=== PATIENT | male | born 2000 | race Two or more races ===

== ENCOUNTER 2023-04-25 23:07 | Inpatient (IN) | payer MEDICAID ==
[~2023-04-25] VITALS: Ht 182.9 cm; Wt 66.3 kg
[2023-04-25 23:42] LABS: Basophils # (auto) 0.1 10 ^3/uL (0-0.2); Basophils % (auto) 0.5 % (0.0-2.0); Eosinophils # (auto) 0 10 ^3/uL (0-0.8); Hematocrit 45.2 % (41.0-53.0); Hemoglobin 15.3 g/dL (13.5-17.5); Lymphocytes # (auto) 1.9 10 ^3/uL (0.4-5.4); Mean Corpuscular Hemoglobin 29.6 pg (28.0-32.0); Mean Corpuscular Hgb Conc. 33.9 g/dL (32.0-36.0); Mean Corpuscular Volume 87.3 fL (80.0-100.0); Monocytes # (auto) 1.7 10 ^3/uL (0-1.3); Monocytes % (auto) 8.1 % (0.0-12.0); Neutrophils % (auto) 82.4 % (37.0-80.0); Red Blood Cells 5.17 10^6/uL (4.5-5.90); Red Cell Distribution Width 13.1 % (11.8-14.3); White Blood Cell 20.7 10^3/uL (4.4-10.8)
[2023-04-26] VITALS (7 sets, daily range): BP systolic 117–132; BP diastolic 62–80; PULSE 102–121; RESP 19–21; TEMP 97.8–99.2; O2SAT 95–98
[2023-04-26 00:18] LABS: Alanine Aminotransferase 16 U/L (7-40); Albumin 4.8 g/dL (3.2-4.8); Alkaline Phosphatase 75 U/L (46-116); Anion Gap 9 (5-15); Aspartate Aminotransferase 11 U/L (13-40); BUN/Creatinine Ratio 9.2 (10.0-20.0); Bilirubin, Total 1.4 mg/dL (0.2-1.0); Blood Urea Nitrogen 8 mg/dL (9-23); Calcium 9.4 mg/dL (8.7-10.4); Carbon Dioxide 24 mmol/L (20-30); Chloride 103 mmol/L (98-107); Glucose 112 mg/dL (74-106); Potassium 3.8 mmol/L (3.5-5.1); Sodium 136 mmol/L (136-145); Total Protein 8.4 g/dL (5.7-8.2)
[2023-04-26] MEDS: SODIUM CHLORIDE 0.9% 2,050 ML IV ONE (00:30)
[2023-04-26] MEDS: cefTRIAXone 1GM/50ML D5W 50 ML IV SCH (01:10)
[2023-04-26] MEDS: VANCOMYCIN 1GM/200ML 200 ML IV ONE (01:31)
[2023-04-26] MEDS: KETOROLAC TROMETH 30 MG/ML 1ML VIAL IV ONE (01:55)
[2023-04-26] MEDS: PROMETHAZINE HCL 25 MG/ML 1ML IV ONE (01:55)
[2023-04-26 02:54] LABS: COVID19 ANTIGEN SOFIA FIA POSITIVE (NEGATIVE)
[2023-04-26] MEDS ORDERED: ONDANSETRON HCL 4 MG/2 ML VIAL IV PRN ×3 (06:00→17:00)
[2023-04-26] MEDS ORDERED: NITROGLYCERIN 0.4 MG SL TAB SL PRN ×2 (06:00→06:15)
[2023-04-26] MEDS ORDERED: ALBUTEROL SULF HFA 90MCG INH 200DOSE IN PRN ×2 (06:00→06:15)
[2023-04-26] MEDS ORDERED: MORPHINE SULFATE INJ 2 MG/ml SYRG IV PRN ×2 (06:00→06:15)
[2023-04-26] MEDS ORDERED: ACETAMINOPHEN 500 MG TAB PO PRN (06:00)
[2023-04-26] MEDS ORDERED: REMDESIVIR PER PHARMACY 0 ML IV SCH ×2 (06:00→06:15)
[2023-04-26 06:28] LABS: CRP High Sensitivity 12.5 mg/dL (<1.0)
[2023-04-26 06:30] LABS: Thyroid Stimulating Hormone 1.77 uIU/mL (0.55-4.78)
[2023-04-26 07:23] LABS: Magnesium 1.8 mg/dL (1.6-2.6)
[2023-04-26] MEDS: ACETAMINOPHEN 500 MG TAB PO PRN ×2 (08:20→18:30)
[2023-04-26] MEDS ORDERED: VANCOMYCIN PER PHARMACY 0 MG IV SCH ×2 (08:45→23:15)
[2023-04-26] MEDS: VANCOMYCIN 1GM/200ML 200 ML IV SCH (09:11)
[2023-04-26 09:22] LABS: Urine Bacteria NONE SEEN /hpf (None Seen); Urine Blood Negative /uL (Negative); Urine Clarity Clear (Clear); Urine Color Yellow (Yellow); Urine Hyaline Cast FEW /lpf (0 - 2); Urine Mucus FEW (None Seen); Urine Protein, UAD 1+ (Negative); Urine Specific Gravity 1.043 (1.001-1.035); Urine Urobilinogen Normal (Negative); Urine WBC 3 /hpf (0 - 3)
[2023-04-26] MEDS ORDERED: AZITHROMYCIN 500MG/ 250ML 250 ML IV SCH (10:00)
[2023-04-26] MEDS ORDERED: ENOXAPARIN SOD 40 MG/0.4 ML SYRINGE SC SCH (10:00)
[2023-04-26] MEDS ORDERED: VANCOMYCIN 1GM/200ML 200 ML IV SCH ×2 (10:00)
[2023-04-26] MEDS ORDERED: DexAMETHasone SOD PHOS 10MG/1ML VIAL INJ IV SCH (10:00)
[2023-04-26] MEDS ORDERED: ASCORBIC ACID 1,000 MG TAB PO SCH (10:00)
[2023-04-26] MEDS ORDERED: ZINC SULFATE 220mg CAP or TAB PO SCH (10:00)
[2023-04-26] MEDS ORDERED: CHOLECALCIFEROL (VITD3) 2,000 UNIT CAP/TAB PO SCH (10:00)
[2023-04-26] MEDS: ZINC SULFATE 220mg CAP or TAB PO SCH (10:13)
[2023-04-26] MEDS: AZITHROMYCIN 500MG/ 250ML 250 ML IV SCH (10:13)
[2023-04-26] MEDS: ASCORBIC ACID 1,000 MG TAB PO SCH (10:14)
[2023-04-26] MEDS: CHOLECALCIFEROL (VITD3) 2,000 UNIT CAP/TAB PO SCH (10:14)
[2023-04-26] MEDS: DexAMETHasone SOD PHOS 10MG/1ML VIAL INJ IV SCH (10:15)
[2023-04-26] MEDS: ENOXAPARIN SOD 40 MG/0.4 ML SYRINGE SC SCH (10:15)
[2023-04-26 13:00] LABS: Amphetamine Screen, Urine Neg (NEGATIVE); Barbiturate Scree,Urine Neg (NEGATIVE); Benzodiazephine Screen, Urine Neg (NEGATIVE); Cocaine Screen, Urine Neg (NEGATIVE)
[2023-04-26 13:01] LABS: Cannabinoid Screen, Urine Pos (NEGATIVE); Opiate Scree,Urine Neg (NEGATIVE); Phencyclidine Screen, Urine Neg (NEGATIVE)
[2023-04-26] MEDS: HYDROcodone-ACET 5/325MG TAB PO PRN (18:40)
[2023-04-26 20:18] LABS: Rapid Influenza A Negative (Negative); Rapid Influenza B Negative (Negative)
[2023-04-26] MEDS ORDERED: VANCOMYCIN 1GM/200ML 200 ML IV NR (23:45)
[2023-04-27] VITALS (9 sets, daily range): BP systolic 104–126; BP diastolic 57–85; PULSE 79–115; RESP 16–20; TEMP 97.9–98.3; O2SAT 96–98
[2023-04-27 07:16] LABS: Basophils # (auto) 0 10 ^3/uL (0-0.2); Basophils % (auto) 0.1 % (0.0-2.0); Eosinophils # (auto) 0 10 ^3/uL (0-0.8); Eosinophils % (auto) 0.1 % (0.0-7.0); Hematocrit 40.1 % (41.0-53.0); Hemoglobin 13.5 g/dL (13.5-17.5); Lymphocytes # (auto) 0.9 10 ^3/uL (0.4-5.4); Lymphocytes % (auto) 8.3 % (10.0-50.0); Mean Corpuscular Hemoglobin 29.5 pg (28.0-32.0); Mean Corpuscular Hgb Conc. 33.6 g/dL (32.0-36.0); Mean Corpuscular Volume 87.9 fL (80.0-100.0); Monocytes # (auto) 0.9 10 ^3/uL (0-1.3); Monocytes % (auto) 7.7 % (0.0-12.0); Neutrophils # (auto) 9.5 10 ^3/uL (1.6-8.6); Neutrophils % (auto) 83.8 % (37.0-80.0); Red Blood Cells 4.56 10^6/uL (4.5-5.90); White Blood Cell 11.4 10^3/uL (4.4-10.8)
[2023-04-27 07:24] LABS: Alanine Aminotransferase 15 U/L (7-40); Albumin 4.1 g/dL (3.2-4.8); Alkaline Phosphatase 69 U/L (46-116); Anion Gap 7 (5-15); Aspartate Aminotransferase 17 U/L (13-40); Blood Urea Nitrogen 9 mg/dL (9-23); Calcium 9.4 mg/dL (8.5-10.1); Carbon Dioxide 26 mmol/L (20-30); Chloride 108 mmol/L (98-107); Glucose 102 mg/dL (74-106); Potassium 3.9 mmol/L (3.5-5.1); Sodium 141 mmol/L (136-145)
[2023-04-27 07:25] LABS: Bilirubin, Total 0.7 mg/dL (0.2-1.0); Total Protein 7.2 g/dL (5.7-8.2)
[2023-04-27] MEDS: VANCOMYCIN 1GM/200ML 200 ML IV SCH (10:17)
[2023-04-27] MEDS: CHOLECALCIFEROL (VITD3) 2,000 UNIT CAP/TAB PO SCH (10:22)
[2023-04-28] VITALS (8 sets, daily range): BP systolic 108–149; BP diastolic 60–77; PULSE 68–94; RESP 18–20; TEMP 97.8–98.6; O2SAT 95–99
[2023-04-28 02:59] LABS: Basophils # (auto) 0 10 ^3/uL (0-0.2); Basophils % (auto) 0.2 % (0.0-2.0); Eosinophils # (auto) 0 10 ^3/uL (0-0.8); Hematocrit 43.3 % (41.0-53.0); Hemoglobin 14.4 g/dL (13.5-17.5); Lymphocytes # (auto) 1.2 10 ^3/uL (0.4-5.4); Lymphocytes % (auto) 10.5 % (10.0-50.0); Mean Corpuscular Hemoglobin 29.4 pg (28.0-32.0); Mean Corpuscular Hgb Conc. 33.2 g/dL (32.0-36.0); Mean Corpuscular Volume 88.6 fL (80.0-100.0); Monocytes # (auto) 0.9 10 ^3/uL (0-1.3); Monocytes % (auto) 7.8 % (0.0-12.0); Neutrophils # (auto) 8.9 10 ^3/uL (1.6-8.6); Neutrophils % (auto) 81.5 % (37.0-80.0); Nucleated Red Blood Cells % 0.1 %; Red Blood Cells 4.89 10^6/uL (4.5-5.90); Red Cell Distribution Width 13.1 % (11.8-14.3); White Blood Cell 10.9 10^3/uL (4.4-10.8)
[2023-04-28] MEDS ORDERED: AUG875T PO (15:11)
== END 2023-04-28 16:45 | disposition home or self-care (01) | DRG 137 ==
LOC: ER 23:07 → TELE 04-26 05:47 → ER 04-26 05:51 → TELE-EAST 04-26 23:11
PROVIDERS: ADMIT Nurse Practitioner; ATTEND Internal Medicine Pulmonary Disease
DX: U07.1 COVID-19 (principal); J12.82 Pneumonia due to coronavirus disease 2019; D89.839 Cytokine release syndrome, grade unspecified; R06.03 Acute respiratory distress
CPT/HCPCS: 36415; 71045; 80053; 80202; 80307; 81001; 82306; 82565; 82728; 83036; 83605; 83615; 83735; 84443; 84484; 85025; 85379; 86141; 87040; 87077; 87186; 87426; 87804; 93005; G0378; J1100; J1885

== ENCOUNTER 2023-12-23 09:59 | Emergency (ER) | payer MEDICAID ==
[~2023-12-23] VITALS: Ht 182.9 cm; Wt 65.9 kg
[~2023-12-23 09:59] MED LIST: AUG875T PO
[2023-12-23 10:33] LABS: Basophils # (auto) 0 10 ^3/uL (0-0.2); Basophils % (auto) 0.4 % (0.0-2.0); Eosinophils # (auto) 0.1 10 ^3/uL (0-0.8); Eosinophils % (auto) 1.5 % (0.0-7.0); Hematocrit 44.8 % (41.0-53.0); Lymphocytes # (auto) 2.3 10 ^3/uL (0.4-5.4); Lymphocytes % (auto) 37.7 % (10.0-50.0); Mean Corpuscular Hemoglobin 31.5 pg (28.0-32.0); Mean Corpuscular Hgb Conc. 35.7 g/dL (32.0-36.0); Mean Corpuscular Volume 88.2 fL (80.0-100.0); Monocytes # (auto) 0.5 10 ^3/uL (0-1.3); Monocytes % (auto) 7.8 % (0.0-12.0); Neutrophils # (auto) 3.2 10 ^3/uL (1.6-8.6); Neutrophils % (auto) 52.6 % (37.0-80.0); Nucleated Red Blood Cells % 0.1 %; Platelet Count (auto) 294 10^3/uL (140-450); Red Blood Cells 5.08 10^6/uL (4.5-5.90); Red Cell Distribution Width 12.5 % (11.8-14.3); White Blood Cell 6.1 10^3/uL (4.4-10.8)
[2023-12-23 10:40] LABS: Chloride 107 mmol/L (98-107); Potassium 3.6 mmol/L (3.5-5.1); Sodium 141 mmol/L (136-145)
[2023-12-23 10:41] LABS: Anion Gap 10 (5-15); Calcium 9.9 mg/dL (8.7-10.4); Carbon Dioxide 24 mmol/L (20-31)
[2023-12-23 10:46] LABS: BUN/Creatinine Ratio 11.6 (10.0-20.0); Blood Urea Nitrogen 11 mg/dL (9-23); Glucose 146 mg/dL (74-106)
[2023-12-23 12:00] VITALS: BP 119/80; PULSE 78; RESP 18; TEMP 98; O2SAT 99
== END 2023-12-23 13:02 | disposition left against medical advice (07) ==
LOC: ER 09:59
DX: R51.9 Headache, unspecified (principal); H54.62 Unqualified visual loss, left eye, normal vision right eye; Z90.49 Acquired absence of other specified parts of digestive tract
CPT/HCPCS: 36415; 70450; 80048; 85025

== ENCOUNTER 2023-12-25 05:55 | Emergency (ER) | payer MEDICAID ==
[~2023-12-25] VITALS: Ht 182.9 cm; Wt 70.6 kg
[2023-12-25 06:56] VITALS: BP 115/72; PULSE 89; RESP 18; TEMP 98; O2SAT 99
[2023-12-25] MEDS ORDERED: ERY05OO OP (07:23)
[2023-12-25] MEDS ORDERED: CEPH500C PO (07:23)
[2023-12-25] MEDS ORDERED: IBUP1TAB5 PO (07:23)
== END 2023-12-25 07:23 | disposition home or self-care (01) ==
LOC: ER 05:55
DX: H00.015 Hordeolum externum left lower eyelid (principal); Z79.899 Other long term (current) drug therapy; Z90.49 Acquired absence of other specified parts of digestive tract

== ENCOUNTER 2024-01-22 10:21 | Emergency (ER) | payer MEDICAID ==
[~2024-01-22] VITALS: Ht 182.9 cm; Wt 72.9 kg
[~2024-01-22 10:21] MED LIST changes: +CEPH500C PO; +ERY05OO OP; +IBUP1TAB5 PO
[2024-01-22 11:42] VITALS: BP 155/95; PULSE 106; RESP 17; TEMP 98.3; O2SAT 98
--- NOTE | 2024-01-22 11:42 | ED.PDOC ---
Eye-HPI HPI Comments 23 year old male presents for stye to the right lower eyelid Recently had one on the left. No other complaint Chief Complaint: Eye Problem Time Seen by MD: 11:26 Primary Care Provider: NONE Reviewed Notes: Nurses Notes, Medications, Allergies Allergies: Coded Allergies: NO KNOWN ALLERGIES (Unverified , 04/25/23) Home Meds Active Scripts Ibuprofen Micronized (Ibuprofen) 600 Mg Tab, 600 MG PO TID for 10 Days, #30 TAB 0 Refills Prov:WES ELLISON COMMUNITY LIFE DIRECTOR 01/22/24 Cephalexin Monohydrate (Cephalexin) 500 Mg Cap, 1 CAP PO QID for 5 Days, #20 CAP 0 Refills Prov:WES ELLISON COMMUNITY LIFE DIRECTOR 01/22/24 Erythromycin (Erythromycin) 5 Mg/Gm Oin, 1 APPLIC OP TID for 7 Days, #5 GRAMS 0 Refills Prov:WES ELLISON COMMUNITY LIFE DIRECTOR 12/25/23 Amoxicillin & Pot Clavulanate (AUGMENTIN TABLET) 875 Mg Tb, 875 MG PO BID for 7 Days, #14 TAB Prov:RAAD PORTER RESIDENT 04/28/23 Information Source: Patient Mode of Arrival: Ambulatory Past Medical History PAST MEDICAL HISTORY: Denies Surgical History: Appendectomy Family History Family History: Reviewed,noncontributory to illness Social History Smoker: Non-Smoker Alcohol: Denies ETOH Use Drugs: Denies Drug Use Lives In: Home All Other Systems: Reviewed and Negative (Per HPI) Physical Exam General Appearance: No Apparent Distress, Normal HEENT: Normal ENT Inspection, Pharynx Normal, TMs Normal Neck: Full Range of Motion, Non-Tender, Normal, Normal Inspection Respiratory: Chest Non-Tender, Lungs Clear, No Accessory Muscle Use, No Respiratory Distress, Normal Breath Sounds Cardiovascular: No Edema, No JVD, No Murmur, No Gallop, Normal Peripheral Pulses, Regular Rate/Rhythm Breast Exam: Deferred Gastrointestinal: No Organomegaly, Non Tender, No Pulsatile Mass, Normal Bowel Sounds, Soft Genitalia: Deferred Pelvic: Deferred Rectal: Deferred Extremities: No calf tenderness, Normal capillary refill, Normal inspection, Normal range of motion, Non-tender, No pedal edema Musculoskeletal : Apperance: Normal Neurologic: Alert, linux systems analyst II-XII nml as Tested, No Motor Deficits, Normal Affect, Normal Mood, No Sensory Deficits Cerebellar Function: Normal Reflexes: Normal Skin: Dry, Normal Color, Warm Lymphatic: No Adenopathy Was a procedure done? Was a procedure done?: No EENT DIFF Eye: Allergic, Hordeolum (stye) X-Ray, Labs, Meds, VS Vital Signs Date Time Temp Pulse Resp B/P (MAP) Pulse Ox O2 Delivery O2 Flow Rate FiO2 01/22/24 11:42 98.3 106 17 155/95 (115) 98 98.3 01/22/24 11:42 106 17 98 Room Air 01/22/24 10:32 98.3 106 17 155/95 (115) 98 X-Ray, Labs, Meds, VS Comment On reevaluation, patient had symptomatic improvement. Patient is stable for discharge at this time. External notes reviewed. Test results and diagnostic imaging interpreted. All diagnostic findings, discharge care, education and instructions provided Follow-up with PCP in 2 to 3 days Patient verbalized understanding and agreed to treatment plan Vital signs stable, afebrile, no acute distress noted Patient ambulatory with strong steady gait Advised to return precautions for any new or worsening symptoms, return to ER immediately for re-evaluation Patient is aware that the purpose of this visit was for an acute medical emergency requiring emergent stabilization. Chronic conditions, including malignancies have not been ruled out. Patient is instructed to follow up with PCP as directed and discharge instructions for continued care and workup. If unable to arrange follow-up, patient is to return to the emergency department for reassessment. Patient (parent or legal guardian if applicable) was given verbal and written discharge instructions and acknowledges understanding. Time of 1ST Reevaluation: 11:41 Reevaluation 1ST: Improved Patient Education/Counseling: Diagnosis, Treatment Family Education/Counseling: Diagnosis, Treatment Departure 1 Departure Time of Disposition: 11:41 Impression: Primary Impression: Stye Qualified Codes: H00.012 - Hordeolum externum right lower eyelid Disposition: HOME / SELF CARE / HOMELESS Condition: Stable e-Prescriptions Ibuprofen Micronized (Ibuprofen) 600 Mg Tab 600 MG PO TID for 10 Days, #30 TAB 0 Refills Prov: WES ELLISON COMMUNITY LIFE DIRECTOR 01/22/24 Cephalexin Monohydrate (Cephalexin) 500 Mg Cap 1 CAP PO QID for 5 Days, #20 CAP 0 Refills Prov: WES ELLISON COMMUNITY LIFE DIRECTOR 01/22/24 Discharged With: Self Critical Care Note Critical Care Time?: No Stability Stability form required: No Heart Score Heart Score: Heart Score Response (Comments) Value History N/A 0 EKG N/A 0 Age N/A 0 Risk Factors N/A 0 Troponin N/A 0 Total 0 WES ELLISON NP Jan 22, 2024 11:42
== END 2024-01-22 11:44 | disposition home or self-care (01) ==
LOC: ER 10:21
DX: H00.012 Hordeolum externum right lower eyelid (principal); Z90.49 Acquired absence of other specified parts of digestive tract; Z79.1 Long term (current) use of non-steroidal anti-inflammatories (NSAID); Z79.899 Other long term (current) drug therapy

== ENCOUNTER 2024-06-12 18:29 | Emergency (ER) | payer MEDICAID ==
[~2024-06-12] VITALS: Ht 182.9 cm; Wt 71.7 kg
[2024-06-12 19:40] VITALS: BP 125/77; PULSE 83; RESP 18; TEMP 98; O2SAT 98
[2024-06-12] MEDS: HYDROcodone-ACET 5/325MG TAB PO ONE (20:42)
[2024-06-12] MEDS: IBUPROFEN 800 MG TAB PO ONE (20:52)
[2024-06-12] MEDS: LIDOCAINE 1% HCL (LOCAL ANESTH.) INJ 20ML MDV ID ONE (20:55)
--- NOTE | 2024-06-12 21:06 | ED.PDOC ---
History of Present Illness(SKN HPI Comments RED RAISED PAINFUL LUMPS TO RT INER UPPER ARM NEAR AXILLA X1 WEEK WORSENING REDNESS ALSO CONGESTION. DENIES FEVER, CHILLS, NAUSEA, OR VOMITING Chief Complaint: Abscess Time Seen by MD: 18:37 Primary Care Provider: NONE History of Present Illness: Nurses Notes, Medications, Allergies Allergies: Coded Allergies: NO KNOWN ALLERGIES (Unverified , 04/25/23) Home Meds Active Scripts Clindamycin Hcl (Clindamycin Hcl) 300 Mg Cap, 300 MG PO QID for 5 Days, #20 CAP Prov:KWABENA GUTIERREZ IT ADMINISTRATOR 06/12/24 Ibuprofen Micronized (Ibuprofen) 600 Mg Tab, 600 MG PO TID for 10 Days, #30 TAB 0 Refills Prov:WES ELLISON HYDROTHERAPIST 01/22/24 Cephalexin Monohydrate (Cephalexin) 500 Mg Cap, 1 CAP PO QID for 5 Days, #20 CAP 0 Refills Prov:WES ELLISON NP 01/22/24 Erythromycin (Erythromycin) 5 Mg/Gm Oin, 1 APPLIC OP TID for 7 Days, #5 GRAMS 0 Refills Prov:WES ELLISON HYDROTHERAPIST 12/25/23 Amoxicillin & Pot Clavulanate (AUGMENTIN TABLET) 875 Mg Tb, 875 MG PO BID for 7 Days, #14 TAB Prov:RAAD PORTER RESIDENT 04/28/23 Information Source: Patient Mode of Arrival: Ambulatory Past Medical History PAST MEDICAL HISTORY: Denies Surgical History: Appendectomy Family History Family History: Reviewed,noncontributory to illness Social History Smoker: Non-Smoker Alcohol: Denies ETOH Use Drugs: Denies Drug Use Lives In: Home Constitutional: denies: chills, diaphoresis, fatigue, fever, malaise, sweats, weakness, others EENTM: denies: blurred vision, double vision, ear bleeding, ear discharge, ear drainage, ear pain, ear ringing, eye pain, eye redness, hearing loss, mouth pain, mouth swelling, nasal discharge, nose bleeding, nose congestion, nose pain, photophobia, tearing, throat pain, throat swelling, voice changes, others Respiratory: denies: cough, hemoptysis, orthopnea, SOB at rest, shortness of breath, SOB with excertion, stridor, wheezing, others Cardiovascular: denies: chest pain, dizzy spells, diaphoresis, Dyspnea on exertion, edema, irregular heart beat, left arm pain, lightheadedness, palpitations, PND, syncope, others Gastrointestinal: denies: abdomen distended, abdominal pain, blood streaked bowels, constipated, diarrhea, dysphagia, difficulty swallowing, hematemesis, melena, nausea, poor appetite, poor fluid intake, rectal bleeding, rectal pain, vomiting, others Genitourinary: denies: burning, dysuria, flank pain, frequency, hematuria, incontinence, penile discharge, penile sore, pain, testicle pain, testicle sw elling, urgency, others Neurological: denies: dizziness, fainting, headache, left sided numbness, left sided weakness, numbness, paresthesia, pre-existing deficit, right sided numbness, right sided weakness, seizure, speech problems, tingling, tremors, weakness, others Musculoskeletal: denies: back pain, gout, joint pain, joint swelling, muscle pain, muscle stiffness, neck pain, others Integumetry: reports: others (RIGHT AXILLARY AREA 2 LUMPS); denies: bruises, change in color, change in hair/nails, dryness, laceration, lesions, lumps, rash, wounds Allergic/Immunocompromised: denies: Difficulty Healing, Frequent Infections, Hives, Itching, others Hematologic/Lymphatic: denies: anemia, blood clots, easy bleeding, easy bruising, swollen glands, others Endocrine: denies: excessive hunger, excessive sweating, excessive thirst, excessive urination, flushing, intolerance to cold, intolerance to heat, unexplained weight gain, unexplained weight loss, others Psychiatric: denies: anxiety, bipolar disorder, depression, hopeless, panic disorder, schizophrenia, sleepless, suicidal, others Physical Exam General Appearance: No Apparent Distress, Normal HEENT: Pharynx Normal Neck: Full Range of Motion, Non-Tender Respiratory: Lungs Clear, No Respiratory Distress, Normal Breath Sounds Cardiovascular: No Murmur, Normal Peripheral Pulses, Regular Rate/Rhythm Breast Exam: Deferred Gastrointestinal: Non Tender, Soft Genitalia: Deferred Pelvic: Deferred Rectal: Deferred Extremities: Normal capillary refill, Normal inspection, Normal range of motion, Non-tender, No pedal edema Musculoskeletal : Apperance: Normal Neurologic: Alert, budget report clerk II-XII nml as Tested, No Motor Deficits, Normal Affect, Normal Mood, No Sensory Deficits Cerebellar Function: Normal Reflexes: Normal Skin: Dry, Normal Color, Warm, Other (ABSCESSES NOTED RIGHT AXILLARY WITH MODERATE TENDERNESS, ERYTHEMA, FLUCTUANT, WITHOUT DRAINAGE OR STREAKING NO NOTED LOCAL ADENOPATHY) Lymphatic: No Adenopathy Was a procedure done? Was a procedure done?: Yes Sedation Sedation?: No Informed consent obtained: Yes Incision and Drainage Incision and Drainage: Abscess Location RIGHT AXILLARY Anesthetic: Lidocaine Preparation: Betadine Incision and Wound: Pus, Blood Informed consent obtained: Yes Risks/benefits/alt described: Yes Notes PATIENT TOLERATED WELL WITH MINIMAL BLOOD LOSS Differential Diagnosis (INTG) Differential Diagnosis: Cellulitis, Hematoma, Insect Envenomation, Puncture Wound Differential Diagnosis: Candidiasis, Impetigo, Psoriasis X-Ray, Labs, Meds, VS Vital Signs Date Time Temp Pulse Resp B/P (MAP) Pulse Ox O2 Delivery O2 Flow Rate FiO2 06/12/24 19:40 98.0 83 18 125/77 (93) 98 98.0 06/12/24 18:44 98.0 83 18 125/77 (93) 98 98.0 Current Medications Medications (Trade) Dose Ordered Sig/Cassy Route Start Time Stop Time Status Last Admin Lidocaine HCl (Xylocaine 1%) 5 ml ONCE ONCE ID 06/12/24 20:45 06/12/24 20:46 DC 06/12/24 20:55 Ibuprofen (Motrin Tablet) 800 mg ONCE ONCE PO 06/12/24 20:45 06/12/24 20:46 DC 06/12/24 20:52 Ceftriaxone Sodium (Rocephin) 1,000 mg ONCE ONCE IM 06/12/24 21:15 06/12/24 21:16 DC 06/12/24 21:24 X-Ray, Labs, Meds, VS Comment SEE PROCEDURE NOTE. NORCO 5 MG P.O. GIVEN PRIOR TO PROCEDURE. TRIAL CLINDAMYCIN SCRIPT TO PHARMACY ADVISED TO TAKE MEDICATION HAS BEEN GUBRANDYN SIDE EFFECTS DISCUSSED ADVISED TO TAKE A DAILY PROBIOTIC OR YOGURT WHILE ON ANTIBIOTIC. FOLLOW UP WITH HIS PCP, URGENT CARE OR BACK HERE IN THE ER IN 2 DAYS FOR WOUND RE-EVALUATION. [id number] TYLENOL OR MOTRIN NEEDED FOR THE PAIN PER LABELED DOSING INSTRUCTIONS. ER RETURN PRECAUTIONS GIVEN PATIENT INDICATES UNDERSTANDING AGREES WITH DISCHARGE PLAN OF CARE. Time of 1ST Reevaluation: 21:08 Reevaluation 1ST: Improved Patient Education/Counseling: Diagnosis, Treatment, Prognosis, Need For Follow Up Family Education/Counseling: Diagnosis, Treatment, Prognosis, Need For Follow Up Departure 1 Departure Time of Disposition: 21:12 Impression: Primary Impression: Abscess of axilla, right Disposition: 01 HOME / SELF CARE / HOMELESS Condition: Stable e-Prescriptions Clindamycin Hcl (Clindamycin Hcl) 300 Mg Cap 300 MG PO QID for 5 Days, #20 CAP Prov: KWABENA GUTIERREZ 06/12/24 Discharged With: Significant Other Critical Care Note Critical Care Time?: No Stability Stability form required: KWABENA Fisher Jun 12, 2024 21:06
[2024-06-12] MEDS ORDERED: CLIN1CAP70 PO (21:08)
[2024-06-12] MEDS: cefTRIAXone SOD 1,000 MG VL IM ONE (21:24)
== END 2024-06-12 21:30 | disposition home or self-care (01) ==
LOC: ER 18:29
DX: L02.411 Cutaneous abscess of right axilla (principal); Z90.49 Acquired absence of other specified parts of digestive tract; Z79.1 Long term (current) use of non-steroidal anti-inflammatories (NSAID); Z79.899 Other long term (current) drug therapy
CPT/HCPCS: 10060; 96372; 99283; J0696